=== PATIENT | female | born 1950 | race Caucasian/White ===

== ENCOUNTER → 2020-09-17 06:47 | Outpatient (CLI) | payer MEDICARE, SELFPAY ==
[2020-09-17 20:36] LABS: SARS-CoV-2 RNA PCR Positive
== END ==
PROVIDERS: PCP Family Medicine; Visit Provider Physician Assistant
DX: U07.1 COVID-19 (principal)
CPT/HCPCS: C9803; U0003; U0005

== ENCOUNTER 2020-09-22 12:34 | Inpatient (IN) | payer MEDICARE, SELFPAY ==
[2020-09-22] VITALS (12 sets, daily range): BP systolic 101–146; BP diastolic 70–95; PULSE 82–114; RESP 13–19; TEMP 38; O2SAT 97–99
--- NOTE | ~2020-09-22 | CT_ITS ---
EXAMINATION: CT brain wo con INDICATION: Bilateral lower extremity weakness COMPARISON: None TECHNIQUE: Standard unenhanced head CT. The dose-length product (DLP) was 605.33 mGy-cm. The mA was a djusted according to patient size. Iterative reconstruction technique was employed. FINDINGS: There is no acute intraparenchymal hemorrhage. No evidence of mass lesion. No evidence of a cute infarction. There is mild periventricular and subcortical hypodensity probably related to small vessel ischemic disease. There is mild prominence of the sulci and ventricles related to cerebral atr ophy. Intracranial calcified cerebral atherosclerosis is noted. There are no extra-axial collections. There is no mass effect or midline shift. The orbits and soft tissues are unremarkable. And air-flui d level is noted in the left sphenoid sinus. IMPRESSION: 1. No acute intracranial abnormality. 2. Age related findings. Reviewed, dictated and finalized at location A.
--- NOTE | ~2020-09-22 | XR_ITS ---
EXAMINATION: XR chest 2V DATE: 09/22/2020 13:53 INDICATION: COVID positive. TECHNIQUE: frontal and lateral views of the chest were obtained. COMPARISON: None FINDINGS: The lungs are clear with no focal airspace opacities, pulmonary edema, pleural effusion or pneumothor ax. The cardiomediastinal silhouette is normal. Mild to moderate midthoracic spondylosis. IMPRESSION: 1. No acute cardiopulmonary disease. Reviewed, dictated and finalized at location A.
--- NOTE | ~2020-09-22 | CT_ITS ---
EXAMINATION: CT lumbar spine wo con DATE: 09/22/2020 17:32 INDICATION: Lower extremity weakness TECHNIQUE: Computed tomography (CT) of the lumbar spine was performed without intravenous contrast. T he dose-length product (DLP) was 600.68 mGy-cm. Iterative reconstruction was used. COMPARISON: None FINDINGS: There are 3 mm of anterolisthesis of L5 on S1. There is severe loss of intervertebral disc space height at L4-5 and L5-S1. No fracture is identified. There is moderate multilevel facet osteoar thritis. There are partially imaged nonobstructing stones of the right kidney measuring 8 mm and 3 mm . Phleboliths are noted in the pelvis. There is cortical scarring at the posterior lateral aspect of the left kidney. There is moderate distention of the urinary bladder. IMPRESSION: 1. Moderate to severe lower lumbar spondylosis without acute findings. Reviewed, dictated and finalized at location A.
--- NOTE | ~2020-09-22 | XR_ITS ---
EXAMINATION: XR lumbar puncture diagnostic DATE: 09/22/2020 20:01 INDICATION: Lower extremity weakness TECHNIQUE: The procedure including the risks and benefits were discussed with the patient. Risks disc ussed included spinal headache, cerebrospinal fluid leak, bleeding, and infection. The patient unders tood the risks and agreed to proceed. A timeout was performed to verify the patient's name, date o f , and procedure to be performed. The skin overlying the L4-5 level was prepared and draped in usual sterile fashion. Subcutaneous 1% lidocaine was used for local anesthesia. A 20 gauge spinal needle was advanced under fluoroscopic guidance. The needle was removed and the entry site was cleane d and dressed. There were no immediate complications. Fluoroscopy exposure time was 0.5 minutes. The DAP for this procedure was 2.109 Gycm2. One image was obtained. FINDINGS: Real-time fluoroscopy demonstrates the needle at the needle level. 13 mL of blood-tinged fl uid was collected in three tubes. IMPRESSION: 1. Successful fluoro-guided lumbar puncture. Reviewed, dictated and finalized at location A.
--- NOTE | ~2020-09-22 | US_ITS ---
EXAMINATION: US venous doppler [facility] DATE: 09/22/2020 15:31 INDICATION: Bilateral lower limb numbness, shortness of breath TECHNIQUE: Cancino scale images without and with compression and Doppler images of the bilateral lower e xtremity veins were obtained. COMPARISON: None FINDINGS: The right common femoral vein, profunda femoral vein, femoral vein, popliteal vein, peroneal trunk, p osterior tibial veins, and greater saphenous vein are patent. The left common femoral vein, profunda femoral vein, femoral vein, popliteal vein, peroneal trunk, po sterior tibial veins, and greater saphenous vein are patent. IMPRESSION: 1. Patent bilateral lower extremity veins. No evidence of deep venous thrombosis. Reviewed, dictated and finalized at location A. IMPRESSION: 1. Patent bilateral lower extremity veins. No evidence of deep venous thrombosi s.
--- NOTE | ~2020-09-22 | MR_ITS ---
EXAMINATION: MR lumbar spine wo/w con DATE: 09/23/2020 13:40 INDICATION: Lower extremity weakness. TECHNIQUE: Magnetic resonance imaging (MRI) of the lumbar spine was performed without and with 13 mL MultiHance intravenous contrast. Sequences included sagittal T2-weighted FSE, sagittal T2-weighted FS FSE, and sagittal and axial T1-weighted FSE. Postcontrast sequences included axial T2-weighted FSE a nd axial and sagittal T1-weighted FS FSE. COMPARISON: Lumbar spine CT 09/22/2020 FINDINGS: There is 4 mm anterolisthesis of L5 on S1. There is mild chronic height loss of L5 vertebra l body posteriorly. There is severely decreased disc height at L4-L5 and L5-S1 with endplate remodeli ng. The distal spinal cord signal intensity is normal. The conus medullaris is at L1-L2. There is abn ormal contrast enhancement in portions of the cauda equina without nerve enlargement. There is mild a trophy of the kidneys. The following disc levels are specifically discussed: L1-L2: The disc does not extend beyond the endplate margin. There is mild bilateral facet joint osteo arthritis. There is no neural foraminal stenosis. There is no central canal stenosis. L2-L3: The disc is mildly bulging. There is moderate right and mild left facet joint osteoarthritis. There is mild bilateral neural foraminal stenosis. There is mild central canal stenosis. L3-L4: The disc is mildly bulging. There is mild right and moderate left facet joint osteoarthritis. There is mild bilateral neural foraminal stenosis. There is mild central canal stenosis. L4-L5: The disc is bulging and has an annular fissure. There is severe bilateral facet joint osteoart hritis. There is mild bilateral neural foraminal stenosis. There is mild central canal stenosis. L5-S1: The disc is bulging and has an annular fissure. There is severe bilateral facet joint osteoart hritis. There is mild bilateral neural foraminal stenosis. There is mild central canal stenosis. IMPRESSION: 1. 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 2. Severe lumbar spondylosis. Reviewed, dictated and finalized at location A. IMPRESSION: 1. 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 2. Severe lumbar spondylosis.
--- NOTE | 2020-09-22 13:22 | PC.NURSE ---
Discussed findings with jazmyn rios, verbal order for sepsis protocol and bilateral lower extremity ultrasound.
--- NOTE | 2020-09-22 13:23 | ECG_ITS ---
Measurements Intervals Nunda Rate: 97 P: 17 MN: 163 QRS: -3 QRSD: 76 T: 33 QT: 335 QTc: 426 Interpretive Statements SINUS RHYTHM CONSIDER INFERIOR INFARCT, AGE INDETERMINATE ABNORMAL ECG Electronically Signed On 09-22-2020 17:47:58 CDT by Jermain Funez D.O.
[2020-09-22 13:52] LABS: Basophils Percent Auto 0.4 % (0.2-1.2); Hematocrit 42.8 % (37.0-47.0); Hemoglobin 14.3 g/dL (12.0-15.0); Immature Granulocyte Absolute 0.02 K/mm3 (0.00-0.031); Immature Granulocyte Percent A 0.7 % (0-0.5); Lymphocytes Absolute Auto 0.84 K/mm3 (0.9-3.2); Mean Corpuscular HGB Conc 33.4 g/dl (32-36); Mean Corpuscular Hemoglobin 29.4 pg (26-34); Mean Corpuscular Volume 88.1 fl (80-100); Mean Platelet Volume 9.4 fl (7.4-10.4); Monocytes Absolute Auto 0.5 K/mm3 (0.1-0.6); Monocytes Percent Auto 17.5 % (2.6-8.5); Neutrophils Absolute Auto 1.4 K/mm3 (1.3-6.7); Neutrophils Percent Auto 51.4 % (45.5-73.1); Platelet Count Result 201 k/mm3 (150-375); Red Blood Count 4.86 M/mm3 (4.2-5.4); Red Cell Distribution Width 12.6 % (11.5-14.5); White Blood Count 2.8 K/mm3 (4.5-10.0)
[2020-09-22 14:01] LABS: INR 0.9; Prothrombin Time 11.8 Seconds (11.1-14.7)
[2020-09-22 14:07] LABS: Alanine Aminotransferase 31 U/L (4-35); Albumin Level 4.1 g/dL (3.5-5.1); Alkaline Phosphatase 65 U/L (38-126); Anion Gap 8 mmol/L (8-16); Aspartate Amino Transferase 43 U/L (14-36); Bilirubin,Total 0.4 mg/dL (0.2-1.3); Blood Urea Nitrogen 13 mg/dL (7-17); CRP 0.8 mg/dL (<1.0); Calcium 8.4 mg/dL (8.4-10.2); Carbon Dioxide 24 mmol/L (22-30); Chloride 102 mmol/L (98-107); Estimated CRCL calculation 46 ml/min; Estimated Glomerular Filt Rate > 60; Glucose 103 mg/dL (65-110); Potassium 3.6 mmol/L (3.4-5.0); Sodium 134 mmol/L (137-145)
--- NOTE | 2020-09-22 15:46 | ED.GENADULT ---
HPI - General Adult General Chief complaint: Extremity Problem,Nontraumatic <Jatin Taveras MD - Last Filed: 09/28/20 08:40> Stated complaint: covid +, legs not functioning <Jatin Taveras MD - Last Filed: 09/28/20 08:40> Time Seen by Provider: 09/22/20 15:10 <Jatin Taveras MD - Last Filed: 09/28/20 08:40> History of Present Illness HPI narrative: Patient is a 69-year-old female who presents the ER with lower extremity weakness. She was diagnosed with COVID-19 on 09/17/2020. On that day she woke up from bed and felt weak in her lower extremities. Since then she has been unable to walk unless she uses crutches. Today she felt like she had decreased dorsiflexion strength in her left lower extremity. Patient has no numbness or tingling to her lower extremities just physical weakness. She cannot lift her right leg up off of the bed and can only lift her left leg off the bed for about 1 second. <Jatin Taveras MD - Last Filed: 09/28/20 08:40> Related Data Home medications: Home Medications Medication Instructions Recorded Confirmed No Home Medications 04/01/20 09/25/20 <Jatin Taveras MD - Last Filed: 09/28/20 08:40> Allergies/adverse reactions: Allergies Allergy/AdvReac Type Severity Reaction Status Date / Time No Known Allergies Allergy Verified 09/22/20 15:58 <Jatin Taveras MD - Last Filed: 09/28/20 08:40> Review of Systems Review of Systems: All systems reviewed & are unremarkable except as noted in HPI and below <Jatin Taveras MD - Last Filed: 09/28/20 08:40> Constitutional: Constitutional: Denies chills, Denies fever(s) and Reports weakness <Jatin Taveras MD - Last Filed: 09/28/20 08:40> ENT: Denies nasal congestion and Denies sore throat <Jatin Taveras MD - Last Filed: 09/28/20 08:40> Respiratory: Respiratory: Denies cough, Denies dyspnea and Denies wheezing <Jatin Taveras MD - Last Filed: 09/28/20 08:40> Gastrointestinal: Gastrointestinal: Denies abdominal pain, Denies nausea and Denies vomiting <Jatin Taveras MD - Last Filed: 09/28/20 08:40> Neurologic: Denies headache(s), Reports focal weakness and Denies numbness <Jatin Taveras MD - Last Filed: 09/28/20 08:40> PMFSH Past Medical History Medical History: Medical History No pertinent past medical history <Jatin Taveras MD - Last Filed: 09/28/20 08:40> Surgical History Surgical History: Surgical History History of ankle surgery Right No pertinent past surgical history <Jatin Taveras MD - Last Filed: 09/28/20 08:40> Family History Family History: Family History Mother Diabetes mellitus Father Lymph node cancer <Jatin Taveras MD - Last Filed: 09/28/20 08:40> Social History Social History: Social History Social History: Lives with Lives active lifestyle Independent Retired Smoking status: Never smoker Alcohol intake: never Substance use: never Living arrangements: with family Occupation/Education: retired Gender identity (if verbalized by the patient): Female Spiritual care concerns: Yes <Jatin Taveras MD - Last Filed: 09/28/20 08:40> Exam Narrative: GENERAL: Well-appearing, well-nourished, and in no acute distress. HEAD: Normocephalic, atraumatic. EYES: PERRL and EOMI. CHEST: Clear to auscultation. No respiratory distress. HEART: Regular rate and rhythm. Normal peripheral pulses. ABDOMEN: Soft, nontender, nondistended. EXTREMITIES: Normal strength upper extremities. Right lower extremity patient cannot lift the leg off of the bed but she can pull the knee up towards her chest. Patient seems to have adequate strength at her ankle and her knee when she is in a
[2020-09-22] MEDS: ACETAMINOPHEN 500 MG TABLET 1000 MG PO (15:49)
[2020-09-22] MEDS: SODIUM CHLORIDE 0.9% IV 1,000 ML 999 ML IV CONT (15:50)
--- NOTE | 2020-09-22 15:59 | PC.NURSE ---
pt known covid + september 19
[2020-09-22 16:23] LABS: Add Urine Microscopic? YES; Appearance Urine Clear (Clear); Bilirubin Urine Negative (Negative); Blood Urine Negative (Negative); Color Urine Yellow (Yellow); Glucose Urine UA Negative (Negative); Ketones Urine Negative (Negative); Leukocyte Esterase Ur Negative LEU/UL (Negative); Mucus Urine Rare /lpf; Nitrate Urine Negative (Negative); Protein Urine 1+ mg/dL (Negative); RBC Urine 0-2 /hpf (0-2); Specific Grav Ur 1.017 (1.001-1.035); Squamous Epithelial Cell Urine Rare /hpf (Few); Urobilinogen Urine Negative mg/dL (<2.0)
[2020-09-22 20:13] LABS: Glucose CSF 63 mg/dL (40-70); Total Protein CSF 46 mg/dL (12-60)
[2020-09-22 21:22] LABS: Appearance CSF Bloody (Clear); CSF source CSF; Color CSF Red (Colorless)
[2020-09-22 21:23] LABS: Lymphocytes CSF 64 % (40-80); Monocytes CSF 7 % (15-45); Neutrophils CSF 29 % (0-6); Nucleated Cell CSF 10 /uL (0-5); Red Blood Cell CSF 2590 (0-2)
[2020-09-22 21:26] LABS: Creatine Kinase 116 U/L (30-135)
[2020-09-23] VITALS (15 sets, daily range): BP systolic 94–123; BP diastolic 73–90; PULSE 82–98; RESP 15–22; TEMP 36.5–37.7; O2SAT 93–98; BMI 25.1
--- NOTE | 2020-09-23 03:13 | PC.NURSE ---
talked to [facility] transfer center and they stated there are still no beds available at this time.
--- NOTE | 2020-09-23 07:33 | PC.NURSE ---
ordered patient tray from breakfast
--- NOTE | 2020-09-23 08:18 | PC.NURSE ---
Pt in hospital bed. Eating breakfast
--- NOTE | 2020-09-23 08:19 | PC.NURSE ---
When moving from ER bed to hospital bed pt needed full assist to support herself
--- NOTE | 2020-09-23 09:26 | PC.NURSE ---
I called Dr. Park office to get a consult for Dr. Baptiste. Dr. Park office informed me that doc is on vacation and will not be in until tomorrow. they do not have a dr cigarette carton sealer at this time
--- NOTE | 2020-09-23 10:03 | PC.NURSE ---
made contact with [facility] to find out if there will be abed opening.[facility] stated they have no beds at this time and will call us when one is available. they also stated that they can not say it is today but she is on a waiting list.
--- NOTE | 2020-09-23 12:32 | WPDCNINT ---
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 Patient has been waiting in the ER since yesterday. We do not have a neurologist on staff at this time but will continue management until patient is transferred. Patient will be admitted to step-down unit for continuing evaluation and management and closer monitoring. Patient has been started on IVIG which will be continued daily. patient will be pretreated with IV fluids, Benadryl and Tylenol q.4 hours neurological checks q.6 hours monitoring of FVC and NIF CSF was a bloody tap and other studies are pending MRI lumbar spine is ordered and pending (2) COVID-19: Code(s): U07.1 - COVID-19 Status: Acute Assessment and Plan: patient was recently tested positive COVID-19 but is currently on room air. Her chest x-ray is clear continue symptomatic treatment with analgesic and Tylenol Additional Plan DVT prophylaxis - subcutaneous Lovenox Code Status - Full Code Animal Keeper Consult Note Consult date: 09/23/20 Time Seen: 11:30 HPI: Annie Alexander is a 69 year old female with no significant past medical history presented with chief complaint of bilateral leg weakness to ED yesterday. Patient states that she started having symptoms of COVID around Friday 09/15. She was having fever muscle ache nasal discharge chills dry cough. She was tested for COVID on 09/17 and was tested positive. Yesterday morning she started having weakness in her both legs. Was unable to stand up and felt that her legs could not support her weight. Spoke to a family physician who directed her to go to ED for evaluation. Denies any tingling or numbness in her legs or hands. no weakness in upper extremities. no change in speech or vision. no change in sensation of temperature. she states her chills and muscle aches have totally gone away. She continues to have low-grade fever and cough which is mostly dry but occasionally associated with whitish sputum. She states her weakness is slightly better in the right side today as compared to yesterday. But she still cannot support her and cannot raise the legs fully. She never lost control of her bowel or bladder. All other systems were reviewed and were negative patient was suspected of having GBS. Patient had LP done in the ER yesterday which was a bloody tap. other tests are pending. Chest x-ray was negative head CT was negative. WBC showed leukopenia. Lower extremity Dopplers were negative for DVT. [facility] was consulted and after discussion with neurology patient was started on IVIG. Patient was supposed to be transferred to [facility] since we do not have a neurologist on staff at this time. Patient is still waiting for bed since yesterday in the ER hence I was asked to see patient to admit her to inpatient service until patient is transferred. Review of Systems Review of Systems: All systems reviewed & are unremarkable except as noted in HPI and below (HPI HPI) [facility] Past Medical History Medical History (Updated 09/23/20 @ 12:36 by Carlos Acosta MD) No pertinent past medical history Surgical History Surgical History (Updated 09/23/20 @ 12:51 by Carlos Acosta MD) History of ankle surgery Right No pertinent past surgical history Social History Social History Smoking status: Never smoker Gender identity (if verbalized by the patient): Female Meds Home Medications and Allergies Home Medications Medication
--- NOTE | 2020-09-23 14:35 | ADMGEN ---
This patient, Annie Alexander, was admitted to Intensive Care Unit-8. Patient/family oriented to hospital policies and general routines including ID bracelet, bed and alarms, visiting hours, pain management, procedures, bathroom and other care routines, personal items, smoking policy, room service/diet, and visiting hours. Information on how to activate the Rapid Response Team has been discussed. Patient/Family are encouraged to report perceived risks to care and to ask questions if they do not understand what they are told or what they should do.
--- NOTE | 2020-09-23 20:01 | PC.NURSE ---
Contacted [facility] patient transfer, spoke with Jaquelin and informed her that patient was admitted to ICU-8. Gave her main hospital number to contact ICU when bed becomes available at [facility].
[2020-09-23] MEDS: SODIUM CHLORIDE 0.9% IV 500 ML 999 ML IV CONT (20:08)
--- NOTE | 2020-09-23 21:58 | PCRCNOTE ---
(1958) FVC 1.55ml NIF -42, pt has very good effort
[2020-09-24] VITALS (13 sets, daily range): BP systolic 101–144; BP diastolic 69–93; PULSE 79–96; RESP 14–25; TEMP 35.9–37.2; O2SAT 91–98
--- NOTE | 2020-09-24 02:56 | PCRCNOTE ---
0250 FVC 2.2, NIF -44. Pt awake & very good effort
[2020-09-24 06:54] LABS: Hematocrit 36.1 % (37.0-47.0); Hemoglobin 12.1 g/dL (12.0-15.0); Immature Granulocyte Absolute 0.03 K/mm3 (0.00-0.031); Immature Granulocyte Percent A 1.1 % (0-0.5); Lymphocytes Absolute Auto 0.81 K/mm3 (0.9-3.2); Mean Corpuscular HGB Conc 33.5 g/dl (32-36); Mean Corpuscular Hemoglobin 30.1 pg (26-34); Mean Corpuscular Volume 89.8 fl (80-100); Mean Platelet Volume 9.7 fl (7.4-10.4); Monocytes Absolute Auto 0.4 K/mm3 (0.1-0.6); Monocytes Percent Auto 13.3 % (2.6-8.5); Neutrophils Absolute Auto 1.5 K/mm3 (1.3-6.7); Neutrophils Percent Auto 55.6 % (45.5-73.1); Platelet Count Result 186 k/mm3 (150-375); Red Blood Count 4.02 M/mm3 (4.2-5.4); White Blood Count 2.7 K/mm3 (4.5-10.0)
[2020-09-24 07:09] LABS: Alanine Aminotransferase 32 U/L (4-35); Alkaline Phosphatase 46 U/L (38-126); Anion Gap 11 mmol/L (8-16); Aspartate Amino Transferase 45 U/L (14-36); Bilirubin,Total 0.4 mg/dL (0.2-1.3); Blood Urea Nitrogen 11 mg/dL (7-17); Calcium 7.6 mg/dL (8.4-10.2); Carbon Dioxide 16 mmol/L (22-30); Chloride 109 mmol/L (98-107); Estimated CRCL calculation 48 ml/min; Estimated Glomerular Filt Rate > 60; Glucose 95 mg/dL (65-110); Magnesium 1.9 mg/dL (1.6-2.3); Potassium 3.9 mmol/L (3.4-5.0); Sodium 136 mmol/L (137-145)
--- NOTE | 2020-09-24 07:36 | PM.IMHP ---
H&P: HPI History of Present Illness Date/Time: 09/24/20 07:36 Patient is a 69-year-old female with no past medical history who presents to the ED with complaints of bilateral lower extremity weakness. She started having symptoms of COVID with muscle aches and fevers general respiratory symptoms without hypoxia on Friday 09/15. She then got tested for COVID-19 on Sunday 09/17 which was positive. She continued to have progressive weakness and the day before admission she came to hospital because she was not able to stand up on her own. She states she has never had any symptoms like this before. Patient sources fevers and lower extremity weakness, she had some loose stools as well. She denies any trauma to her lower extremities or spine. She denies loss of bladder or bowel function. In the ED: Patient had lumbar puncture. 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 She has been started on IVIG today is her 2nd dose. She is also being managed by budget controller. [facility] been consulted and patient is awaiting bed for transfer. By today her lower extremities she is starting to feel some more movement and strength. She still has persistent left foot drop. Chief Complaint: Bilateral lower extremity weakness Review of Systems Review of Systems: All systems reviewed & are unremarkable except as noted in HPI and below PMFSH Past Medical History Medical History No pertinent past medical history Surgical History Surgical History History of ankle surgery Right No pertinent past surgical history Family History Family History Mother Diabetes mellitus Father Lymph node cancer Social History Social History (Updated 09/24/20 @ 16:51 by Sarah Franco DO) Social History: Lives with Lives active lifestyle Independent Retired Smoking status: Never smoker Alcohol intake: never Substance use: never Living arrangements: with family Occupation/Education: retired Gender identity (if verbalized by the patient): Female Spiritual care concerns: Yes Meds Home Medications and Allergies Home Medications Medication Instructions Recorded Confirmed Type No Home Medications 04/01/20 04/01/20 History Allergies Allergy/AdvReac Type Severity Reaction Status Date / Time No Known Allergies Allergy Verified 09/22/20 15:58 Vital Signs Vital Signs - 24 hr 09/23/20 09:02 09/23/20 10:20 09/23/20 10:21 Temperature 37.7 C H Pulse Rate 98 87 84 Respiratory Rate 18 18 18 Blood Pressure 107/90 116/80 116/80 Pulse Oximetry 98 96 96 09/23/20 10:31 09/23/20 12:00 09/23/20 13:48 Temperature Pulse Rate 86 84 87 Respiratory Rate 18 18 18 Blood Pressure 109/75 110/78 109/82 Pulse Oximetry 95 98 98 09/23/20 14:00 09/23/20 16:00 09/23/20 18:00 Temperature 36.5 C Pulse Rate 87 90 85 Respiratory Rate 20 Blood Pressure 121/85 Pulse Oximetry 93 09/23/20 20:00 09/23/20 22:00 09/24/20 00:00 Temperature 37.6 C 37.2 C Pulse Rate 89 94 79 Respiratory Rate 22 H 21 H Blood Pressure 123/82 101/69 Pulse Oximetry 97 93 09/24/20 02:00 09/24/20 04:00 09/24/20 06:00 Temperature 37.1 C Pulse Rate 82 80 81 Respiratory Rate 21 H Blood Pressure 107/72 Pulse Oximetry 92 09/24/20 07:17 Temperature Pulse Rate Respiratory Rate Blood Pressure Pulse Oximetry 91 Exam Narrative: - GENERAL: Pleasant female appears stated age. No acute distress. Well-nourished. - EYES: EOMI. Anicteric. - HENT: Moist mucous membranes. No scleral icterus. - LUNGS: Clear to auscultation bilaterally, no wheezing, rhonchi, or rales. Nonlabored respirations - CARDIOVASCULAR: Regular rate and rhythm. No murmur. No JVD. - ABDOMEN:
--- NOTE | 2020-09-24 08:45 | WPDINTPN ---
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 Patient has been waiting in the ER since yesterday. We do not have a neurologist on staff at this time but will continue management until patient is transferred. Patient will be admitted to step-down unit for continuing evaluation and management and closer monitoring. MRI lumbar spine IMPRESSION: 1. 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 2. Severe lumbar spondylosis. Patient has been started on IVIG which will be continued daily. patient will be pretreated with IV fluids, Benadryl and Tylenol q.4 hours neurological checks Q12H hours monitoring of FVC and NIF CSF was a bloody tap and other studies are pending (2) COVID-19: Code(s): U07.1 - COVID-19 Status: Acute Assessment and Plan: patient was recently tested positive COVID-19 but is currently on room air. Her chest x-ray is clear Her sats this morning her ranging from 94-96% on room air and she denies any dyspnea Check inflammatory markers Continue symptomatic treatment with analgesic and Tylenol Minimize atelectasis with incentive spirometry and PT OT Additional Plan DVT prophylaxis -Lovenox subcu Nutrition -regular diet Code Status - Full Code I spoke to [facility] transfer line and I was told that she is still on wait list and they will call when the bed is available. I was told that no other step-down bed was available in any other [facility] at this time. Subjective Date/time seen: 09/24/20 08:45 Overnight events reviewed. Afebrile Patient received IVIG last night She states she is feeling better. She feels her muscle strength a little improved as compared to yesterday. Denies any change in sensation of touch. No loss of bowel or bladder control Continues to have cough with whitish sputum, no shortness of breath or chest pain. She has some jaw pain from positioning her head during the LP procedure She still does not have taste or smell sensation Other systems were reviewed and were negative Vitals acceptable Review of Systems Review of Systems: All systems reviewed & are unremarkable except as noted in HPI and below (Subjective) Exam Narrative: General: Pt is alert awake and in NAD Lungs/Chest: Trachea central Clear BS B/L, No crackles or wheezing. Cardiac: RRR. Normal S1 S2. No murmurs Circulation: Pedal pulses are intact and symmetrical. Abdomen: Normal bowel sounds.. Soft. NT. ND. Extremities: No clubbing, cyanosis or edema. Warm : Araujo in place Neurologic: patient has normal speech, cranial nerves 2-12 intact, extraocular muscles intact, PERRL, muscle strength is normal in bilateral upper extremities, sensation to touch is intact in bilateral lower extremities, bilateral lower extremities extensor muscles are weak 3/5 on R and 4/5 on L, In feet L is weaker than right on extension, Plantar flexion B/L 5/5, bilateral knee and ankle reflexes are absent Skin: No Rash Objective Data Vital Signs Vital Signs: Vital Signs - 24 hr 09/23/20 09:02 09/23/20 10:20 09/23/20 10:21 Temperature 37.7 C H Pulse Rate 98 87 84 Respiratory Rate 18 18 18 Blood Pressure 107/90 116/80 116/80 Pulse Oximetry 98 96 96 09/23/20 10:31 09/23/20 12:00 09/23/20 13:48 Temperature Pulse Rate 86 84 87 Respiratory Rate 18 18 18 Blood Pressure 109/75 110/78 109/82 Pulse Oximetry 95 98 98 09/23/20 14:00 09/23/20 16:00 09/23/20 18:00 Temperature 36.5 C
[2020-09-24] MEDS: ENOXAPARIN 40 MG/0.4 ML SYRINGE SUB-Q (08:53)
[2020-09-24 11:24] LABS: D Dimer 1.03 ug/mL (<0.48)
[2020-09-24 15:44] LABS: CRP 0.8 mg/dL (<1.0); Lactate Dehydrogenase 567 U/L (313-618)
[2020-09-24] MEDS: SODIUM CHLORIDE 0.9% IV 500 ML 999 ML IV CONT (21:00)
[2020-09-24] MEDS: diphenhydrAMINE HCl CAP 25 MG CAPSULE PO (21:06)
--- NOTE | 2020-09-24 23:17 | PC.NURSE ---
Spoke with Jaquelin with [facility] transport center at 2317. Updated Jaquelin on vital signs, Labs and current patient status. No bed available at this time, current estimated bed availability wait is 2-5 days. [facility] transport center will continue to remain in contact and obtain updates per shift.
[2020-09-25] VITALS (9 sets, daily range): BP systolic 109–126; BP diastolic 67–82; PULSE 78–101; RESP 18–22; TEMP 36.9–37.5; O2SAT 92–96
[2020-09-25 05:03] LABS: Alanine Aminotransferase 38 U/L (4-35); Albumin Level 2.9 g/dL (3.5-5.1); Alkaline Phosphatase 52 U/L (38-126); Anion Gap 6 mmol/L (8-16); Aspartate Amino Transferase 46 U/L (14-36); Bilirubin,Total 0.3 mg/dL (0.2-1.3); Blood Urea Nitrogen 9 mg/dL (7-17); Calcium 7.8 mg/dL (8.4-10.2); Carbon Dioxide 23 mmol/L (22-30); Chloride 106 mmol/L (98-107); Estimated CRCL calculation 48 ml/min; Estimated Glomerular Filt Rate > 60; Glucose 116 mg/dL (65-110); Magnesium 1.8 mg/dL (1.6-2.3); Potassium 3.3 mmol/L (3.4-5.0); Sodium 135 mmol/L (137-145)
[2020-09-25] MEDS: ENOXAPARIN 40 MG/0.4 ML SYRINGE SUB-Q (09:16)
[2020-09-25] MEDS: POTASSIUM CHLORIDE 20 MEQ TABLET 40 MEQ PO (09:16)
--- NOTE | 2020-09-25 09:23 | PCRCNOTE ---
FVC 2.6, NIF -20. Good effort
--- NOTE | 2020-09-25 13:58 | WPDINTPN ---
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 Patient was been waiting in our ER for 24 hrs since admissions and was transferred to the ICU - We do not have a neurologist on staff at this time but will continue management until patient is transferred. Patient will be admitted to step-down unit for continuing evaluation and management and closer monitoring. 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 2. Severe lumbar spondylosis. -patient has received IVIG x3 doses of out of the 5. Her weakness is definitely improving according to her and the notes. Patient is being pre treated with IV fluids, Benadryl and Tylenol q.4 hours neurological checks Q12H hours monitoring of FVC and NIF -CSF analysis: No protein to leukocyte dissociation observed - CSF culture : NO growth -blood culture -no growth x2 bottles (2) COVID-19: Code(s): U07.1 - COVID-19 Status: Acute Assessment and Plan: patient was recently tested positive COVID-19 but is currently on room air. Her chest x-ray is clear Patient on room air with adequate O2 sats > 92% Normal ferritin, normal LDH, normal CRP -D-dimer was 1.03 Continue symptomatic treatment with analgesic and Tylenol Minimize atelectasis with incentive spirometry, PT and OT are following the patient Additional Plan DVT prophylaxis -Lovenox subcu Nutrition -regular diet Code Status - Full Code I spoke to [facility] transfer line and I was told that she is still on wait list and they will call when the bed is available. I was told that no other step-down bed was available in any other [facility] at this time. Subjective Date/time seen: 09/25/20 13:58 Interval history: Bilateral lower extremity weakness, positive COVID on 09/17/2020, Guillain-[place] syndrome 09/25/2020: Patient seen examined the ICU, is awake, alert, oriented x3, able to move her upper extremities, she can lift both her lower extremities off the bed, left is stronger than the right. She states that this definitely an improvement. Patient has received 3 doses of IVIG. Patient is hemodynamically stable, urine output has been adequate, on room air with good O2 sats Review of Systems Review of Systems: All systems reviewed & are unremarkable except as noted in HPI and below (Subjective) Exam Narrative: General: Pt is alert awake and in NAD Lungs/Chest: Trachea central Clear BS B/L, No crackles or wheezing. Cardiac: RRR. Normal S1 S2. No murmurs Circulation: Pedal pulses are intact and symmetrical. Abdomen: Normal bowel sounds.. Soft. NT. ND. Extremities: No clubbing, cyanosis or edema. Warm : Araujo in place Neurologic: Awake, alert, oriented x3, normal speech, cranial nerves 2-12 intact, extraocular muscles intact, PERRL, muscle strength is normal in bilateral upper extremities, sensation to touch is intact in bilateral lower extremities, patient is able to lift bilateral lower extremities extensor muscles are weak 4/5 on R and 4/5 on L, left foot weaker than right on extension, Plantar flexion B/L 5/5, bilateral knee and ankle reflexes are absent Skin: No Rash Objective Data Vital Signs Vital Signs: Vital Signs - 24 hr 09/24/20 14:00 09/24/20 16:00 09/24/20 18:00 Temperature 98.6 F Pulse Rate 84 86 96 Respiratory Rate 23 H Blood Pressure 144/80 H Pulse Oximetry 98 09/24/20 20:00 09/24/20 22:00 09/25/20 00:00 Temperature 98.7 F 98.
--- NOTE | 2020-09-25 15:40 | PC.NURSE ---
This patient, Annie Alexander, was transferred to [ 331-1] on 09/25/20 at 1540. Personal belongings sent with patient. Report given to [MACARIO Negro @ [phone] ]. Appropriate documentation sent with patient.
--- NOTE | 2020-09-25 16:43 | PC.NURSE ---
This patient, Annie Alexander, was received from [ICU] on 09/25/20 at 1610. Patient/family oriented to unit policies and routines
[2020-09-25] MEDS: SODIUM CHLORIDE 0.9% IV 500 ML 999 ML IV CONT (21:28)
[2020-09-25] MEDS: diphenhydrAMINE HCl CAP 25 MG CAPSULE PO (21:29)
--- NOTE | 2020-09-25 22:08 | PCRCNOTE ---
2205 FVC 2.6; NIF -30. Pt awake. Followed directions well. Good effort. Nose clips used.
[2020-09-26] VITALS: BP 121/75; PULSE 95; PULSE 98; RESP 18; TEMP 36.7; O2SAT 94
[2020-09-26 04:00] VITALS: BP 112/70; PULSE 81; PULSE 86; RESP 18; TEMP 37.1; O2SAT 91
[2020-09-26 06:52] LABS: Alanine Aminotransferase 35 U/L (4-35); Albumin Level 3.6 g/dL (3.5-5.1); Alkaline Phosphatase 42 U/L (38-126); Anion Gap 9 mmol/L (8-16); Aspartate Amino Transferase 44 U/L (14-36); Bilirubin,Total 0.4 mg/dL (0.2-1.3); Blood Urea Nitrogen 9 mg/dL (7-17); Calcium 8.2 mg/dL (8.4-10.2); Carbon Dioxide 22 mmol/L (22-30); Chloride 102 mmol/L (98-107); Estimated CRCL calculation 48 ml/min; Estimated Glomerular Filt Rate > 60; Glucose 94 mg/dL (65-110); Magnesium 1.9 mg/dL (1.6-2.3); Potassium 3.6 mmol/L (3.4-5.0); Sodium 133 mmol/L (137-145)
[2020-09-26 06:56] LABS: CRP 3.2 mg/dL (<1.0); Lactate Dehydrogenase 565 U/L (313-618)
[2020-09-26 06:57] LABS: D Dimer 0.47 ug/mL (<0.48)
[2020-09-26 08:00] VITALS: BP 126/69; PULSE 109; PULSE 94; RESP 16; TEMP 36.9; O2SAT 93
[2020-09-26] MEDS: ENOXAPARIN 40 MG/0.4 ML SYRINGE SUB-Q (09:28)
[2020-09-26 12:00] VITALS: BP 130/70; PULSE 88; RESP 16; TEMP 36.8; O2SAT 97
--- NOTE | 2020-09-26 12:31 | PCRCNOTE ---
11:48 Pt awake, followed directions well, Nose clips used, FVC 2.5, NIF -30.
--- NOTE | 2020-09-26 14:26 | PM.IMPN ---
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 Completing 5th dose of IVIG tonight. Consulting Dr. Palacios. (2) Bilateral leg weakness: Code(s): R29.898 - Other symptoms and signs involving the musculoskeletal system Status: Acute Assessment and Plan: From Guillain-[place] (3) COVID-19: Code(s): U07.1 - COVID-19 Status: Acute Assessment and Plan: no respiratory symptoms no need for remdesivir or Decadron. Additional Plan Diet: Regular DVT prophylaxis: Lovenox Code status: Full code Disposition: Patient was accepted to [facility] however bed was not available, continuing IVIG here on recommendations of neurologist Time Spent With Patient Time with patient: 25 - 35 minutes Subjective Date/time seen: 09/26/20 14:26 patient examined. She has no new complaints, doing well, completed 4 doses of IVIG, with 5th dose plan for tonight. On consulting neurology Dr. Palacios. she otherwise is doing well no respiratory symptoms with her COVID-19. Her muscle function is slowly improving however still has some left foot drop and decreased reflexes. Patient denies fever, chills, nausea, vomiting, diarrhea, chest pain, abdominal pain, shortness of breath. Review of Systems Review of Systems: All systems reviewed & are unremarkable except as noted in HPI and below Exam Narrative: - GENERAL: Pleasant female appears stated age. No acute distress. Well-nourished. - EYES: EOMI. Anicteric. - HENT: Moist mucous membranes. No scleral icterus. - LUNGS: Clear to auscultation bilaterally, no wheezing, rhonchi, or rales. Nonlabored respirations - CARDIOVASCULAR: Regular rate and rhythm. No murmur. No JVD. - ABDOMEN: Soft, non-tender and non-distended. No palpable masses. - : Araujo - EXTREMITIES: No edema. Peripheral pulses 2+. Non-tender. - NEUROLOGIC: CN II-XII grossly intact. Still has some left foot drop. Otherwise muscle strength is 4/5 throughout. reflexes absent knees and ankles. - PSYCHIATRIC: Awake, Alert and oriented x 3. Appropriate mood and affect. - SKIN: No rashes or lesions. Warm. - LYMPH: No cervical lymphadenopathy. Objective Data Vital Signs Vital Signs: Vital Signs - 24 hr 09/25/20 16:00 09/25/20 20:00 09/26/20 00:00 Temperature 37.4 C 37.5 C 36.7 C Pulse Rate 96 88 98 Respiratory Rate 20 18 18 Blood Pressure 126/75 109/67 121/75 Pulse Oximetry 94 93 94 09/26/20 04:00 09/26/20 08:00 09/26/20 12:00 Temperature 37.1 C 36.9 C 36.8 C Pulse Rate 81 109 H 88 Respiratory Rate 18 16 16 Blood Pressure 112/70 126/69 130/70 Pulse Oximetry 91 93 97 Intake/Output Intake/Output: Intake & Output 09/23/20 09/24/20 09/25/20 09/26/20 23:59 23:59 23:59 23:59 Intake Total 1420 1180 1870 1040 Output Total 1750 1500 500 Balance 1420 -570 370 540 Meds/Results Medications: Active Medications Generic Name Dose Route Start Last Admin Trade Name Freq PRN Reason Stop Dose Admin Acetaminophen 650 mg 09/24/20 08:41 Acetaminophen 325 Mg Tablet PO Q4H PRN Headache, Fever, Pain Diphenhydramine HCl 25 mg 09/24/20 20:30 09/25/20 21:29 Diphenhydramine Hcl Cap 25 Mg Capsule PO 25 mg DAILY@2030 [facility] Administration Enoxaparin Sodium 40 mg 09/24/20 09:00 09/26/20 09:28 Enoxaparin 40 Mg/0.4 Ml Syringe SUB-Q 40 mg DAILY NAVDEEP Administration Immune Globulin 26 gm/ N/A 260 mls @ 19 mls/hr 09/23/20 21:00 09/25/20 22:03 IVPB 09/27/20 10:42 19 mls/hr Q24H NAVDEEP Administration Sodium Chloride 500 mls @ 999 mls/hr 09/23/20 20:00 09/25/20 22:00 Normal Saline Iv IV CONT 09/26/20 20:31 Infused DAILY@2000 [facility] Infusion Radiology Results: ITS Impressions Chest X-Ray 09/22/20 14:20 IMPRESSION: 1. No acute cardiopulmonary disease. Venous Doppler Study 09/22/20 15
[2020-09-26 16:00] VITALS: BP 122/66; PULSE 92; PULSE 93; RESP 16; TEMP 37.3; O2SAT 94
[2020-09-26] MEDS: ACETAMINOPHEN 325 MG TABLET 650 MG PO ×2 (17:59→22:04)
[2020-09-26 20:00] VITALS: BP 110/66; PULSE 87; PULSE 88; RESP 18; TEMP 37.6; O2SAT 95
[2020-09-26] MEDS: SODIUM CHLORIDE 0.9% IV 500 ML 999 ML IV CONT (22:04)
[2020-09-26] MEDS: diphenhydrAMINE HCl CAP 25 MG CAPSULE PO (22:05)
[2020-09-27] VITALS: BP 111/70; PULSE 72; PULSE 78; RESP 20; TEMP 36.8; O2SAT 96
[2020-09-27 04:00] VITALS: BP 129/76; PULSE 82; PULSE 84; RESP 20; TEMP 36.8; O2SAT 96
[2020-09-27 06:30] LABS: Alanine Aminotransferase 38 U/L (4-35); Albumin Level 3.3 g/dL (3.5-5.1); Alkaline Phosphatase 46 U/L (38-126); Anion Gap 9 mmol/L (8-16); Aspartate Amino Transferase 49 U/L (14-36); Bilirubin,Total 0.5 mg/dL (0.2-1.3); Blood Urea Nitrogen 10 mg/dL (7-17); Calcium 8.5 mg/dL (8.4-10.2); Carbon Dioxide 21 mmol/L (22-30); Chloride 108 mmol/L (98-107); Estimated CRCL calculation 54 ml/min; Estimated Glomerular Filt Rate > 60; Glucose 103 mg/dL (65-110); Magnesium 1.9 mg/dL (1.6-2.3); Potassium 3.8 mmol/L (3.4-5.0); Sodium 138 mmol/L (137-145)
[2020-09-27 08:00] VITALS: BP 123/74; PULSE 80; PULSE 85; RESP 18; TEMP 36.8; O2SAT 94
[2020-09-27] MEDS: ENOXAPARIN 40 MG/0.4 ML SYRINGE SUB-Q (08:20)
--- NOTE | 2020-09-27 09:09 | WPDNEURCNPN ---
Assessment and Plan Assessment and plan (1) Bilateral leg weakness: Code(s): R29.898 - Other symptoms and signs involving the musculoskeletal system Status: Acute (2) COVID-19: Code(s): U07.1 - COVID-19 Status: Acute Additional Plan post COVID complaints of difficulties in ambulation with weakness of the lower extremities has received the IVIG and is on the 5th does definitely feels better, moving the lower extremities particularly the ankles and the extraocular movements are also normal eating the morning sandwich without any difficulties at this stage she is stable would not need more than 5th dose of IVIG Consult date: 09/27/20 Time Seen: 08:30 HPI: Annie Alexander is a 69 year old femaleAdmitted to the hospital for the complaints of bilateral lower extremity weakness in addition to the muscle aches and fever in general respiratory symptom without hypoxia on Wednesday she has anger tested for COVID-19 on Wednesday which was positive she continued to have progressive weakness in the lower extremities and she came to the hospital because she was unable to stand up on her own she has never had symptoms like this before additionally she did have some loose stools as well she gave no history of recent or remote trauma no history of bowel or bladder incontinence in the emergency room patient underwent spinal tap with suspicion of Guillain-[place] syndrome was admitted to the hospital started on IVIG sent to [facility] has been consulted and patientt is awaiting transfer by this morning patient is definitely feeling much better except the left foot drop this morning she is also moving left ankle in dorsal and plantar flexion patient does have a history of right ankle surgery she is independent otherwise and retired never smoker, pertinent investigation up until now include the CBC with leukopenia hemoglobin 12.1 and WBC only 2.7 platelet count of 186 protime of 11.8 with INR of 0.9 and D-dimer of 0.47 BMP normal hepatic enzymes mildly elevated with AST of 49 and ALT of 38 and CRP of 3.2 his spinal fluid was bloody [place] 2004 and 90 RBCs only 10 nucleated cells 29 neutrophils lymphocytes 64 monocytes 7 with glucose 63 and protein only 46 serology was positive for SARS-CoV-2 it on 09/17 MRI revealed abnormal contrast enhancement in the cauda equina his severe lumbar spondylosis, neal Fedder lower extremity Doppler study revealed no thrombosis head CT scan was negative Review of Systems Review of Systems: All systems reviewed & are unremarkable except as noted in HPI and below PMFSH Past Medical History Medical History No pertinent past medical history Surgical History Surgical History History of ankle surgery Right No pertinent past surgical history Family History Family History Mother Diabetes mellitus Father Lymph node cancer Social History Social History Social History: Lives with Lives active lifestyle Independent Retired Smoking status: Never smoker Alcohol intake: never Substance use: never Living arrangements: with family Occupation/Education: retired Gender identity (if verbalized by the patient): Female Spiritual care concerns: Yes Meds Home Medications and Allergies Home Medications Medication Instructions Recorded Confirmed Type No Home Medications 04/01/20 09/25/20 History Allergies Allergy/AdvReac Type Severity Reaction Status Date / Time No Known Allergies Allergy Verified 09/22/20 15:58 Vital Signs Vital Signs - 24 hr 09/26/20 12:00 09/26/20 16:00 09/26/20 20:00 Temperature 36.8 C 37.3 C 37.6 C H Pulse Rate 88 92 88 Respiratory Rate 16 16 18 Blood Pressure 130/70 122/66 110/66 Pulse Oximetry 97 94 95 09/27/20 00:00 0
[2020-09-27 12:00] VITALS: BP 126/75; PULSE 89; RESP 16; TEMP 37.2; O2SAT 95
--- NOTE | 2020-09-27 12:01 | PCRCNOTE ---
1150 Pt. sitting up in bed, good effort. FVC2.8; NIF -32.
--- NOTE | 2020-09-27 13:01 | PM.DS ---
DS: Admitting Diagnosis Admitting Diagnosis Guillain-[place] from COVID-19 DS: Discharge Diagnosis Discharge Diagnosis (1) COVID-19: Code(s): U07.1 - COVID-19 Status: Acute Assessment and Plan: only symptom of COVID-19 is Guillain-[place] syndrome. 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 She was diagnosed with COVID-19 with symptom onset on 09/15 and positive test on 09/17. S for symptoms were viral fever and chills which later developed into lower extremity weakness. Her weakness was so severe that she could not stand on her own bringing her to the ED. She was found to be COVID-19 positive and with her symptoms she was believed to have Guillain-[place] syndrome. Neurology was consulted recommended 5 days of IVIG. Patient tolerated IVIG with no problems and has slowly had improvement of her lower extremities. She has some persistent left foot drop which has improved significantly. Her reflexes are slowly improving, some minor reflex right knee, ankle still absent reflexes. Patient walked with physical therapy. I discussed case with neurologist who states she does not need anymore IVIG. Patient clinically doing well with gradual improvement of lower extremity weakness. She completed 5 days of IVIG, labs stable vitals stable patient is stable for discharge. Patient understands and agrees with plan. Status at Discharge Cognitive/behavioral status at discharge: At baseline Functional status at discharge: independent ambulation Overall status at discharge: patient is back to baseline Time Spent with Patient Time attestation: Total time spent providing and/or coordinating discharge services:35 Time spent: Greater than 30 minutes Exam Narrative: - GENERAL: No acute distress. Well-nourished. - EYES: EOMI. Anicteric. - HENT: Moist mucous membranes. - LUNGS: Clear to auscultation bilaterally, no wheezing, rhonchi, or rales. - CARDIOVASCULAR: Regular rate and rhythm. No murmur. No JVD. - ABDOMEN: Soft, non-tender and non-distended. No palpable masses. - EXTREMITIES: No edema. Peripheral pulses 2+. Non-tender. - NEUROLOGIC: CN II-XII grossly intact. she has some footdrop on left foot however is much improved from yesterday. She has good strength 4/5 to 5/5 throughout lower extremities. right knee reflexes minor but present. absent ankle reflexes - PSYCHIATRIC: Awake, Alert and oriented x 3. Appropriate mood and affect. - SKIN: No rashes or lesions. Warm. - LYMPH: No cervical lymphadenopathy. DS: Data Data Completed and Pending Labs on day of discharge: Labs from last 24 hours 09/27/20 06:00 Sodium 138 Potassium 3.8 Chloride 108 H Carbon Dioxide 21 L Anion Gap 9 BUN 10 Creatinine 0.70 Estim Creat Clear Calc 54 Estimated GFR > 60 Glucose 103 Calcium 8.5 Magnesium 1.9 Total Bilirubin 0.5 AST 49 H ALT 38 H Alkaline Phosphatase 46 Total Protein 7.0 Albumin 3.3 L Preliminary micro results at discharge 09/22/20 13:40 Blood Culture - Preliminary Blood 09/22/20 13:40 Blood Culture - Preliminary Blood Discharge Plan Discharge Attending physician on discharge: Sarah Franco Consulting providers: Carlos Acosta ; Solomon Palacios Discharging Clinician: Sarah Franco Anticipated Discharge Date/Time: 09/27/20 12:57 Patient Disposition: Home, Self-Care Activity: may shower Diet: regular Discharge Instructions: -please follow-up PCP in 1-2 weeks, quarantine for 2 weeks since positive diagnosis. Wash hands with soap and water regularly and limit interactions with other people especially
--- NOTE | 2020-09-27 14:59 | PCOTNOTE ---
Attempted to see patient this pm, however patient refused stating she was too tired from physical therapy.
[2020-09-27 15:49] VITALS: BP 122/70; PULSE 97; RESP 18; TEMP 37.4; O2SAT 93
[2020-10-02 13:31] LABS: Albumin, CSF 26.1 mg/dL (8.0-42.0); Albumin, Serum 3.8 g/dL (3.2-4.6); IgG Index, CSF 0.64 (<0.66); Immunoglobulin G, Serum 906 mg/dL (600-1540); Myelin Basic Protein, CSF <2.0 mcg/L (2.0-4.0)
== END 2020-09-27 17:45 | disposition home or self-care (01) | DRG 178 ==
LOC: ANHED 15:53 → ANHICU 09-23 12:37 → ANH3MEDSUR 09-26 10:38 → ANHICU 10-01 09:39
PROVIDERS: Emergency Medicine Emergency Medical Services; Internal Medicine; Admitting Provider Internal Medicine; Emergency Provider Emergency Medicine; PCP Family Medicine; Visit Provider Student in an Organized Health Care Education/Training Program
DX: U07.1 COVID-19 (principal); G61.0 Guillain-Barre syndrome; M47.896 Other spondylosis, lumbar region
CPT/HCPCS: 36415; 62328; 70450; 71046; 72131; 72158; 80053; 81001; 82040; 82042; 82550; 82728; 82784; 82945; 83605; 83615; 83735; 83873; 83916; 84157; 85025; 85380; 85610; 85730; 86140; 87040; 87070; 87205; 88108; 89051; 93005; 93970; 96360; 96361; 96372; 97110; 97116; 97161; 97165; 97530; 99285; A9270; A9577; G0378; J1459; J1650; J7030; J7040

== ENCOUNTER 2022-03-10 14:55 | Outpatient (CLI) | payer MEDICARE, SELFPAY ==
--- NOTE | ~2022-03-10 | DEXA_ITS ---
Bone Density Report Name: ANNI MCKEON Age: 71 Sex: Female Ethnicity: White Date of : 1950 Indication: postmenopausal; screening for osteoporosis; Referring Provider: MARY MCCLOUD Study: Bone densitometry was performed. Exam Date: March 10, 2022 Accession number: [id number] Bone Density: Region BMD T-score Z-score Classification AP Spine(L1-L4) 0.815 -2.1 0.1 Osteopenia Femoral Neck (Left) 0.568 -2.5 -0.7 Osteoporosis Total Hip (Left) 0.731 -1.7 -0.1 Osteopenia Femoral Neck (Right) 0.576 -2.5 -0.6 Osteoporosis Total Hip (Right) 0.712 -1.9 -0.3 Osteopenia Total Hip Mean 0.721 -1.8 -0.2 Osteopenia World Health Organization criteria for BMD impression classify patients as: Normal (T-score at or above -1.0), Osteopenia (T-score between -1.0 and -2.5), or Osteoporosis (T-score at or below -2.5). 10-year Fracture Risk: FRAX not reported because: Some T-score for Spine Total or Hip Total or Femoral Neck at or below -2.5 Clinical Information Provided by Patient: Has used the following medications: Vitamin D, Calcium Patient maximum height was 62.75 Menopause Age: 52 Drinks caffeinated beverages Onset of menses at age 15 Number of children 6 Impression: The patient has osteoporosis, based on the Left Femoral Neck T-score. Discussion: INCREASED RISK OF FRACTURE. BONE DENSITY IS UNDESIRABLY LOW AT ONE OR MORE SKELETAL SITES, CONSISTENT WITH POSTMENOPAUSAL OSTEOPOROSIS. This patient's lowest T-score meets the World Health Organization's (WHO) criteria for osteoporosis at one or more sites (T-score -2.5 or below). In untreated patients, the risk of osteoporotic fracture increases approximately two-fold for each 1.0 SD decrease in T-score. Low bone density is not the only risk factor for fracture; also consider factors such as patient's age, frailty or poor health, risk of falling, risk of injury, previous osteoporotic fracture, family history of osteoporosis, cigarette smoking, low body weight, etc. Not everyone with low bone mineral density has osteoporosis; osteomalacia and other metabolic bone disorders should also be considered. Patients who have osteoporosis should be evaluated for specific diseases and conditions (secondary causes) that may cause or contribute to bone loss. The [place] [employer]ocrinologists (AACE) and National Osteoporosis Foundation (NOF) recommend pharmacologic intervention for all postmenopausal women whose T-score is in this range. The patient should follow a healthful lifestyle (good nutrition with adequate calcium and vitamin D, and appropriate weight-bearing exercise). Follow-Up: Consider a repeat BMD and Vertebral Fracture Assessment (VFA) exam in 2 years or sooner if medically necessary, to reassess this patient's status. Reported by: DO
--- NOTE | ~2022-03-10 | MM_ITS ---
EXAMINATION: MM screening sadaf BI w vilma HISTORY: Screening mammogram TECHNIQUE: Craniocaudal and mediolateral oblique 3-D tomosynthesis images were obtained and synthetic 2-D images were generated. CAD analysis was submitted and interpreted. COMPARISON: No prior mammogram is available for comparison at this institution. BREAST PARENCHYMAL COMPOSITION: There are scattered areas of fibroglandular density. FINDINGS: No suspicious mass, calcification, or architectural distortion are identified in either adrian ast to suggest malignancy. IMPRESSION: 1. No mammographic evidence of malignancy. 2. Recommend routine screening mammography in one year. BI-RADS Category 1: Negative Reviewed, dictated and finalized at location A. LY PRESERV[employer] OFFICER
== END 2022-03-10 14:56 | disposition home or self-care (01) ==
PROVIDERS: PCP Family Medicine; Visit Provider Nurse Practitioner
DX: Z12.31 Encounter for screening mammogram for malignant neoplasm of breast (principal); Z78.0 Asymptomatic menopausal state; M85.89 Other specified disorders of bone density and structure, multiple sites; M81.0 Age-related osteoporosis without current pathological fracture
CPT/HCPCS: 77063; 77067; 77080